=== PATIENT | male | born 2000 | race Caucasian/White ===

== ENCOUNTER 2020-01-29 00:54 | Emergency (ER) | payer MEDICAID, SELFPAY ==
[2020-01-29 00:58] VITALS: BP 118/69; PULSE 84; RESP 16; TEMP 36.6; O2SAT 98; BMI 20.3
--- NOTE | 2020-01-29 01:48 | ED_ITS ---
HPI - Extremity Problem General Chief complaint: Extremity Injury, Upper Stated complaint: ARM PAIN/INJURY Time Seen by Provider: 01/29/20 01:48 Source: patient Mode of arrival: ambulatory Limitations: no limitations History of Present Illness HPI Narrative: patient comes in complaining of right forearm pain. Patient states that he was at work, refrigerator fell on his arm, patient has a small abrasion to his right forearm, patient has no joint pain at the wrist or elbow. patient denies any other injuries MD Complaint: extremity pain Onset (ago): hour(s) Pain Consistency: constant Location: right and upper extremity Quality: dull Radiation: none Relieving factors: nothing Exacerbating factors: nothing Associated symptoms: denies other symptoms Related Data Allergies Allergy/AdvReac Type Severity Reaction Status Date / Time No Known Allergies Allergy Verified 01/29/20 01:00 [No Known Allergies*] Review of Systems Review of Systems: Constitutional: No Weight loss, No Fever, No Chills, No Night Sweats, No Fatigue, No Malaise ENT/Mouth: No Hearing loss, No Ear Pain, No Nasal Congestion, No Sinus Pain, No Hoarseness, No sore throat, No Rhinorrhea, No Swallowing Difficulty Eyes: No Eye Pain, No Swelling, No Redness, No Foreign Body, No Discharge, No Vision Changes Cardiovascular: No Chest Pain, No SOB, No Dyspnea on Exertion, No Orthopnea, No Edema, No Palpitations Respiratory: No Cough, No Sputum, No Wheezing, No Smoke Exposure, No Dyspnea Gastrointestinal: No Nausea, No Vomiting, No Diarrhea, No Constipation, No abdominal Pain, No Hematochezia, No Melena Genitourinary: no irregular bleeding, No Dysuria, No Urinary Frequency, No Hematuria, No Urinary Incontinence, No Urgency, No Flank Pain, No Urinary Flow Changes, No Hesitancy Musculoskeletal: No joint pain, No Myalgias, No Joint Swelling, mild pain on palpation above the abrasion Skin: small abrasion to right forearm Neuro: No Weakness, No Numbness, No Paresthesias, No Loss of Consciousness, No Dizziness, No Headache Psych: No Anxiety/Panic, No Depression, No SI/HI/AH/VH, No Social Issues, Heme/Lymph: No Bruising, No Bleeding,No Lymphadenopathy Endocrine: No Polyuria, No Polydipsia, No Temperature Intolerance [facility] Social History Social History Advance Directives: No Physical Exam Vital Signs: Vital Signs: Vital Signs Temp Pulse Resp BP Pulse Ox 01/29/20 00:58 97.9 F 84 16 118/69 98 Body Mass Index 20.3 Appearance: Alert. Oriented X3. No acute distress. Eyes: Pupils equal, round and reactive to light. ENT: Pharynx normal. Neck: Normal inspection. Neck supple. No lymph nodes noted. No crepitus CVS: Normal heart rate and rhythm. Pulses normal. Normal S1 and S2 Respiratory: No respiratory distress. Breath sounds normal. No Wheezing. No rales Abdomen: Soft and nontender. No rigidity. No distention. good BS x4 Skin: Skin warm and dry. small abrasion to right forearm, no bleeding. Normal skin turgor. Extremities: No lower extremity edema. No lower extremity edema. full range of motion in right extremity Neuro: Oriented X 3. No motor deficit. No sensory deficit. Moving all extermities. No slurred speech. Course Reevaluation(s) Reevaluation #1: I discussed the physical exam with the patient, patient has a mild abrasion to right forearm, no fracture suspected. MDM - Extremity (Nontraumatic) Imaging Data Forearm x-ray: Radiologist's impression: no acute abnormality Discharge Plan Discharge Clinical Impression: Contusion of soft tissue Patient Disposition: Home, Self-Care Additional Instructions: If you have any worsening symptoms, any new symptoms, please return to the emergency room or call 911. Stand Alone Forms: Work/School Release
--- NOTE | 2020-01-29 01:55 | XR_ITS ---
EXAMINATION: XR FOREARM, RIGHT CLINICAL INFORMATION: Work injury, crush injury COMPARISON: None TECHNIQUE: AP and lateral views of the right forearm were obtained. FINDINGS: Osseous alignment is anatomic. No acute fracture is seen. No significant soft tissue abnormality identified. IMPRESSION: No acute findings.
== END 2020-01-29 02:46 | disposition home or self-care (01) ==
PROVIDERS: Emergency Provider Emergency Medicine
DX: S50.11XA Contusion of right forearm, initial encounter (principal); W20.8XXA Other cause of strike by thrown, projected or falling object, initial encounter; Y93.9 Activity, unspecified; Y92.9 Unspecified place or not applicable; Y99.0 Civilian activity done for income or pay
CPT/HCPCS: 73090; 99283

== ENCOUNTER 2020-12-02 10:27 | Outpatient (REF) | payer MEDICAID, SELFPAY ==
--- NOTE | ~2020-12-02 | MR_ITS ---
EXAMINATION: MR KNEE WITHOUT CONTRAST, LEFT CLINICAL INFORMATION: Left knee pain. COMPARISON: None TECHNIQUE: MRI of the knee without contrast was performed using routine sequences on a high-field scanner. FINDINGS: MENISCI: Medial Meniscus: Intact. Lateral Meniscus: Intact. LIGAMENTS: Cruciate: Diffuse thickening and edema throughout the anterior cruciate ligament, which may represent a sprain/partial tear. No definite full-thickness ligament defect. Collateral: Intact. EXTENSOR MECHANISM: Intact. ARTICULAR CARTILAGE/BONE: Patellofemoral Compartment: Normal. Medial Compartment: Normal. Lateral Compartment: Normal. Patchy marrow edema within the distal femur and proximal tibia, which could represent stress reactions or osseous contusions in the appropriate clinical setting. No fracture line. JOINT FLUID AND BURSAE: Trace joint effusion. MR/MR knee LT wo con IMPRESSION: 1. Thickening and edema of the anterior cruciate ligament, which may represent a sprain/partial tear. No definite full-thickness defect. 2. Patchy marrow edema within the distal femur and proximal tibia, which could represent stress reactions or osseous contusions. No associated fracture line. 3. Trace joint effusion. 4. No meniscal tear.
== END 2020-12-02 10:28 | disposition home or self-care (01) ==
LOC: HO.MRI 10:27
PROVIDERS: PCP Family Medicine; Visit Provider Family Medicine
DX: M25.562 Pain in left knee (principal)
CPT/HCPCS: 73721

== ENCOUNTER 2021-11-27 18:45 | Emergency (ER) | payer OTHER, MEDICAID, SELFPAY ==
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
[2021-11-27 19:10] VITALS: BP 118/64; PULSE 90; O2SAT 99
--- NOTE | 2021-11-27 20:20 | PC.NURSE ---
IV established, pt off to CT.
[2021-11-27 20:33] VITALS: BP 123/74; PULSE 80; RESP 16; O2SAT 98; BMI 30.4
[2021-11-27] MEDS: Morphine Sulfate 4 MG/ML CARTRIDGE IVPUSH (20:38)
[2021-11-27] MEDS: 0.9 % Sodium Chloride 1,000 ML 999 ML IVCONT (20:38)
[2021-11-27] MEDS: ondansetron HCL 4 MG/2 ML VIAL IVPUSH (20:38)
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
[2021-11-27 21:25] LABS: MANUAL DIFF FLAG NO
[2021-11-27 21:28] LABS: Basophils Percent Auto 0.4 % (0-2); Eosinophils Percent Auto 0.1 % (0-4); Hematocrit 42.9 % (42.0-52.0); Hemoglobin 14.7 g/dl (14.0-18.0); Imm Gran Abs Auto 0.04 X10*3/uL (0.00-0.03); Imm Gran Pct Auto 0.4 % (0.0-0.4); Lymphocytes Absolute Auto 0.7 X10*3/uL (1.2-4.9); Lymphocytes Percent Auto 6.4 % (20-40); Mean Corpuscular HGB Conc 34.3 g/dl (31.0-36.0); Mean Corpuscular Hemoglobin 30.2 pg (27.0-33.0); Mean Corpuscular Volume 88.1 fL (80.0-98.0); Monocytes Absolute Auto 1.1 X10*3/uL (0.1-1.2); Monocytes Percent Auto 10.3 % (2-11); Neutrophils Absolute Auto 9.1 x10*3/uL (2.0-8.3); Neutrophils Percent Auto 82.4 % (45-73); Platelet Count 214 X10*3/uL (160-400); Red Blood Count 4.87 X10*6/uL (4.60-5.80); Red Cell Distribution Width 12.4 % (11.0-16.0)
[2021-11-27 21:33] LABS: INTERNATIONAL NORM RATIO 1.1 (0.9-1.1); Prothrombin Time 12.4 SEC (10.0-13.1)
[2021-11-27 21:48] LABS: Alanine Aminotransferase 14 U/L (0-40); Albumin Level 4.1 g/dL (3.5-5.0); Alkaline Phosphatase 58 U/L (39-117); Anion Gap 17 (12-20); Aspartate Amino Transferase 22 U/L (5-37); Bilirubin Direct 0.2 mg/dL (0.0-0.5); Bilirubin Total 0.3 mg/dL (0.0-1.0); Blood Urea Nitrogen 12 mg/dL (9-16); Calcium 8.7 mg/dL (8.4-10.2); Carbon Dioxide 20 mmol/L (22-29); Chloride 105 mmol/L (96-108); Creatinine Clr Calc Pharmacy 169.8; Estimated Glomerular Filt Rate > 60; Glucose Random 88 mg/dL (60-115); Magnesium 1.7 mg/dL (1.6-2.6); Potassium 3.9 mmol/L (3.3-5.1); Sodium 138 mmol/L (135-145); Total Protein 6.8 g/dL (6.5-8.0)
[2021-11-27 22:05] VITALS: BP 118/70; PULSE 81; RESP 18; O2SAT 99
[2021-11-27] MEDS: oxyCODONE HCl Immed Release 5 MG TABLET PO ×2 (22:07→23:34)
[2021-11-27 22:50] VITALS: TEMP 36.4
[2021-11-27] MEDS: cephALEXin 500 MG CAPSULE PO (22:50)
[2021-11-27] MEDS: Bacitracin Oint 14 GM TUBE 1 APPL TOPICAL (23:33)
== END 2021-11-27 23:54 | disposition home or self-care (01) ==
PROVIDERS: Physician Assistant Medical; Emergency Provider Emergency Medicine Emergency Medical Services
DX: S82.142A Displaced bicondylar fracture of left tibia, initial encounter for closed fracture (principal); S82.402A Unspecified fracture of shaft of left fibula, initial encounter for closed fracture; S52.121A Displaced fracture of head of right radius, initial encounter for closed fracture; S92.254A Nondisplaced fracture of navicular [scaphoid] of right foot, initial encounter for closed fracture; S40.812A Abrasion of left upper arm, initial encounter; S40.811A Abrasion of right upper arm, initial encounter; S80.812A Abrasion, left lower leg, initial encounter; S80.811A Abrasion, right lower leg, initial encounter; S40.212A Abrasion of left shoulder, initial encounter; S40.211A Abrasion of right shoulder, initial encounter; S50.312A Abrasion of left elbow, initial encounter; S50.311A Abrasion of right elbow, initial encounter; S50.812A Abrasion of left forearm, initial encounter; S50.811A Abrasion of right forearm, initial encounter; S80.212A Abrasion, left knee, initial encounter; S80.211A Abrasion, right knee, initial encounter; S90.812A Abrasion, left foot, initial encounter; S90.811A Abrasion, right foot, initial encounter; V23.4XXA Motorcycle driver injured in collision with car, pick-up truck or van in traffic accident, initial encounter; M25.462 Effusion, left knee; M25.421 Effusion, right elbow; Y93.89 Activity, other specified; Y92.414 Local residential or business street as the place of occurrence of the external cause; Y99.9 Unspecified external cause status
CPT/HCPCS: 36415; 70450; 71250; 72125; 73030; 73080; 73560; 73590; 73610; 73620; 73630; 74176; 80053; 82248; 83735; 85025; 85610; 96374; 96375; 99284; J2270; J2405

== ENCOUNTER 2021-12-16 16:33 | Outpatient (REF) | payer MEDICAID, SELFPAY ==
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
== END 2021-12-16 16:34 | disposition home or self-care (01) ==
LOC: HO.CT 16:33
PROVIDERS: Visit Provider Physician Assistant
DX: S82.142A Displaced bicondylar fracture of left tibia, initial encounter for closed fracture (principal)
CPT/HCPCS: 73700

== ENCOUNTER 2022-01-15 11:01 | Outpatient (REF) | payer MEDICAID, SELFPAY ==
--- NOTE | ~2022-01-15 | XR_ITS ---
EXAMINATION: XR ELBOW, RIGHT CLINICAL INFORMATION: Pain. COMPARISON: Radiographs dated 11/27/2021 and 01/29/2020. TECHNIQUE: AP, lateral, and oblique views of the right elbow. FINDINGS: Bony alignment and mineralization are normal. The previously noted fracture line of the peripheral right radial head is less apparent than was seen on 11/27/2021, with residual remodeling. No dislocation is noted. No joint effusion is presently seen. There is no soft tissue swelling or foreign body. XR/XR elbow RT min 3V IMPRESSION: The previously noted right radial head fracture line is now less apparent than was seen previously. No joint effusion is presently noted.
--- NOTE | ~2022-01-15 | XR_ITS ---
EXAMINATION: XR KNEE, LEFT XR KNEE AP STANDING CLINICAL INFORMATION: Pain. COMPARISON: CT left knee dated 12/16/2021; prior radiographs, most recently 11/27/2021. TECHNIQUE: Four views of the left knee. AP bilateral standing view of the knees was obtained. FINDINGS: A mildly displaced fracture fragment is redemonstrated arising from the medial margin of the left medial tibial plateau, with faint residual fracture line. The lateral and medial joint space compartments of the bilateral knees are well-maintained. No significant varus or valgus configuration is seen. No abnormal soft tissue or foreign body is seen. XR/XR knee standing BI IMPRESSION: 1. There is a healing fracture redemonstrated of the medial left tibial plateau, in stable alignment. 2. The bilateral lateral and medial joint space compartment are well-maintained.
--- NOTE | ~2022-01-15 | XR_ITS ---
EXAMINATION: XR KNEE, LEFT XR KNEE AP STANDING CLINICAL INFORMATION: Pain. COMPARISON: CT left knee dated 12/16/2021; prior radiographs, most recently 11/27/2021. TECHNIQUE: Four views of the left knee. AP bilateral standing view of the knees was obtained. FINDINGS: A mildly displaced fracture fragment is redemonstrated arising from the medial margin of the left medial tibial plateau, with faint residual fracture line. The lateral and medial joint space compartments of the bilateral knees are well-maintained. No significant varus or valgus configuration is seen. No abnormal soft tissue or foreign body is seen. XR/XR knee LT 2V IMPRESSION: 1. There is a healing fracture redemonstrated of the medial left tibial plateau, in stable alignment. 2. The bilateral lateral and medial joint space compartment are well-maintained.
== END 2022-01-15 11:02 | disposition home or self-care (01) ==
LOC: HO.HOSX 11:01
PROVIDERS: Visit Provider Physician Assistant
DX: S82.201A Unspecified fracture of shaft of right tibia, initial encounter for closed fracture (principal); S52.122A Displaced fracture of head of left radius, initial encounter for closed fracture; S92.251A Displaced fracture of navicular [scaphoid] of right foot, initial encounter for closed fracture
CPT/HCPCS: 73080; 73560; 73565; 99212

== ENCOUNTER 2022-02-26 07:32 | Outpatient (REF) | payer MEDICAID, SELFPAY ==
--- NOTE | ~2022-02-26 | XR_ITS ---
EXAMINATION: XR KNEE, LEFT XR KNEE, BILATERAL CLINICAL INFORMATION: Knee pain. COMPARISON: Left knee 01/15/2022. TECHNIQUE: Single standing view of both knees with 2 additional views of the left knee. FINDINGS: Again seen is a healing fracture of the left medial tibial condyle with some deformity and sclerosis. A definite joint effusion is not present. No chondrocalcinosis. The exam is otherwise unremarkable. The visualized right knee on the included imaging appears normal. XR/XR knee LT 2V IMPRESSION: Healing fracture left medial tibial condyle.
--- NOTE | ~2022-02-26 | XR_ITS ---
EXAMINATION: XR KNEE, LEFT XR KNEE, BILATERAL CLINICAL INFORMATION: Knee pain. COMPARISON: Left knee 01/15/2022. TECHNIQUE: Single standing view of both knees with 2 additional views of the left knee. FINDINGS: Again seen is a healing fracture of the left medial tibial condyle with some deformity and sclerosis. A definite joint effusion is not present. No chondrocalcinosis. The exam is otherwise unremarkable. The visualized right knee on the included imaging appears normal. XR/XR knee standing BI IMPRESSION: Healing fracture left medial tibial condyle.
== END 2022-02-26 07:33 | disposition home or self-care (01) ==
LOC: HO.HOSX 07:32
PROVIDERS: Visit Provider Physician Assistant
DX: S82.202D Unspecified fracture of shaft of left tibia, subsequent encounter for closed fracture with routine healing (principal); X58.XXXD Exposure to other specified factors, subsequent encounter
CPT/HCPCS: 73560; 73565; 99212

== ENCOUNTER 2022-04-21 13:00 | Outpatient (RCR) | payer MEDICAID, SELFPAY ==
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
== END 2022-04-21 14:34 | disposition home or self-care (01) ==
LOC: HO.PT 13:00
PROVIDERS: PCP Family Medicine; Visit Provider Physician Assistant
DX: S92.251D Displaced fracture of navicular [scaphoid] of right foot, subsequent encounter for fracture with routine healing (principal)
CPT/HCPCS: 97110; 97161; 97530

== ENCOUNTER 2023-05-14 02:04 | Emergency (ER) | payer MEDICAID, SELFPAY ==
--- NOTE | ~2023-05-14 | XR_ITS ---
EXAMINATION: XR HAND, RIGHT CLINICAL INFORMATION: Hand injury COMPARISON: 12/31/2018 TECHNIQUE: PA, lateral, and oblique views of the right hand. FINDINGS: Osseous alignment is anatomic. There is cortical irregularity at the dorsal aspect of the hamate, along its ulnar margin, suspicious for sequelae of fracture in the setting of trauma. No significant focal soft tissue abnormality identified. XR/XR hand RT min 3V IMPRESSION: Cortical irregularity at the dorsal aspect of the hamate, suspicious for fracture in the setting of trauma.
[2023-05-14 02:09] VITALS: BP 96/47; PULSE 72; RESP 16; TEMP 36.4; O2SAT 97; BMI 26.1
[2023-05-14 02:26] VITALS: BP 103/53; PULSE 72; RESP 17; TEMP 36.9; O2SAT 100
--- NOTE | 2023-05-14 02:49 | ED_ITS ---
HPI - Extremity Problem General Chief complaint: Extremity Injury, Upper Stated complaint: R Hand Injury Time Seen by Provider: 05/14/23 02:45 Source: patient Mode of arrival: ambulatory Limitations: no limitations History of Present Illness HPI Narrative: Patient complaining of pain in the right hand after he punched a wall about hour prior to arrival in anger slight soft tissue swelling no deformity no other injury Related Data Previous Rx's Medication Instructions Recorded ibuprofen 600 mg tablet 600 mg PO Q6H PRN fever or pain 05/14/23 #30 tabs Allergies Allergy/AdvReac Type Severity Reaction Status Date / Time No Known Allergies Allergy Verified 05/14/23 02:09 [No Known Allergies*] Review of Systems 2 Review of Systems: Yes all other systems are reviewed and are negative PMFSH Social History Social History Advance Directives: No Advance Directives Information Provided: Yes Current occupational status: unemployed Current occupation: rt hand Physical Exam 2 Vital Signs: Vital Signs: Last Vital Signs Temp 98.5 F 05/14/23 02:26 Pulse 72 05/14/23 02:26 Resp 17 05/14/23 02:26 BP 103/53 L 05/14/23 02:26 Pulse Ox 100 05/14/23 02:26 O2 Del Method Room Air 05/14/23 02:26 BMI result Body Mass Index 26.1 Appearance: Alert. Oriented X3. No acute distress. Extrem: Hand/finger images: 1. Soft tissue swelling and tenderness with superficial abrasion neurovascular intact no deformity Medications Administered Discontinued Medications Generic Name Dose Route Start Last Admin Trade Name Freq PRN Reason Stop Dose Admin Ibuprofen 600 mg 05/14/23 02:59 05/14/23 03:20 Ibuprofen 600 Mg Tablet PO 05/14/23 03:00 600 mg ONCE ONE Administration Medical Decision Making Independent Interpretation I performed an independent interpretation of an: Plain X-Ray Discharge Plan Discharge Clinical Impression: Contusion of hand, right Patient Disposition: Home, Self-Care Instructions: Contusion in Adults (ED) Additional Instructions: Apply ice pack Ibuprofen for pain Prescriptions: New ibuprofen 600 mg tablet 600 mg PO Q6H PRN (Reason: fever or pain) Qty: 30 0RF Interventions: ED Discharge Assessment Last Done: 05/14/23 03:23 Discharge Date/Time: 05/14/23 03:23
[2023-05-14] MEDS: Ibuprofen 600 MG TABLET PO (03:20)
== END 2023-05-14 03:23 | disposition home or self-care (01) ==
PROVIDERS: Emergency Provider Internal Medicine
DX: S60.221A Contusion of right hand, initial encounter (principal); W22.09XA Striking against other stationary object, initial encounter; Y93.89 Activity, other specified; Y92.9 Unspecified place or not applicable; Y99.9 Unspecified external cause status
CPT/HCPCS: 73130; 99283; 99284

== ENCOUNTER 2023-09-27 11:12 | Outpatient (REF) | payer MEDICAID, SELFPAY ==
[2023-09-27 14:00] LABS: Blood Urea Nitrogen 11 mg/dL (9-16); Estimated Glomerular Filt Rate > 60
[2023-09-27 15:08] LABS: CT PCR NOT DETECTED (Not Detect.); NG PCR NOT DETECTED (Not Detect.)
[2023-09-28 08:23] LABS: Syphilis Screen Nonreactive (Nonreactive)
[2023-09-28 08:36] LABS: Hepatitis A Antibody IgG REACTIVE (Nonreactive); ~Hepatitis A Antibody IgG 10.04 S/CO (0.00-0.99)
[2023-09-28 08:39] LABS: HBS Num1 0.43 mIU/mL (0-7.99); HBc Num1 0.19 S/CO (0.00-0.79); HBsAGNum1 0.31 S/CO (0.00-0.99); HIV AB/AG Nonreactive (Nonreactive); HIV Num 1 0.06 S/CO (0.00-0.99); Hepatitis B Core Antibody Nonreactive (Nonreactive); Hepatitis B Surface Antigen Negative (Negative); ~HepC Num1 0.12 S/CO (0.00-0.79); ~Hepatitis B Surface Antibody NONREACTIVE (Nonreactive); ~Hepatitis C Antibody Nonreactive (Nonreactive)
== END 2023-09-27 11:13 | disposition home or self-care (01) ==
LOC: HO.HHCL 11:12
PROVIDERS: Visit Provider Family Medicine
DX: Z01.84 Encounter for antibody response examination (principal); Z11.3 Encounter for screening for infections with a predominantly sexual mode of transmission
CPT/HCPCS: 0353U; 36415; 82565; 84520; 86704; 86706; 86708; 86780; 86803; 87340; 87389